=== PATIENT | female | born 1975 | race Caucasian/White ===

== ENCOUNTER 2020-04-15 06:19 | Emergency (ER) | payer BC, MEDICAID ==
[~2020-04-15] VITALS: Ht 157.5 cm; Wt 70.5 kg
[2020-04-15 06:22] VITALS: BP 111/72
[2020-04-15] MEDS ORDERED: ondansetron 4mg rapidly disintigrating tab PO ONE (08:15)
[2020-04-15] MEDS ORDERED: ketorolac trometh inj. 60 MG/2 ML VIAL IM ONE (08:15)
[2020-04-15] MEDS ORDERED: ONDA8TAB13 PO (08:17)
[2020-04-15] MEDS ORDERED: ketorolac trometh. 30mg/ml inj. IM ONE (08:20)
== END 2020-04-15 08:32 | disposition home or self-care (01) ==
LOC: ER 06:20
DX: R51.9 Headache, unspecified (principal); M54.2 Cervicalgia; Z88.5 Allergy status to narcotic agent; Z88.6 Allergy status to analgesic agent; Z79.899 Other long term (current) drug therapy; Z98.890 Other specified postprocedural states
CPT/HCPCS: 96372; 99283; J1885